=== PATIENT | male | born 1975 | race Caucasian/White ===

== ENCOUNTER 2021-04-18 22:09 | Emergency (ER) | payer SELFPAY ==
[~2021-04-18] VITALS: Ht 170.2 cm; Wt 72.6 kg
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
--- NOTE | 2021-04-18 23:59 | NUR ---
BROUGHT TO CT
[2021-04-19] MEDS ORDERED: IBUP-1957 PO (00:41)
--- NOTE | 2021-04-19 00:55 | NUR ---
Patient discharged to home in stable condition. Written and verbal after care instructions given. Patient verbalizes understanding of instruction and RX. Ambulated out of ED. VSS.
[2021-04-19 00:56] VITALS: BP 111/73
== END 2021-04-19 00:56 | disposition home or self-care (01) ==
LOC: ER 22:14
DX: S02.2XXA Fracture of nasal bones, initial encounter for closed fracture (principal); R51.9 Headache, unspecified; Z79.899 Other long term (current) drug therapy; Y08.89XA Assault by other specified means, initial encounter; Y93.89 Activity, other specified; Y92.89 Other specified places as the place of occurrence of the external cause; Y99.8 Other external cause status
CPT/HCPCS: 70450-TC; 70480-TC